=== PATIENT | female | born 1990 | race Caucasian/White ===

== ENCOUNTER 2016-05-02 11:11 | Observation (INO) | payer BC, MEDICAID ==
[~2016-05-02 11:11] MED LIST: ABILIFY10 M1 PO; ADVAIR 2501 DISK W/D IH; ALBUTEROL NEBULIZER INH; ALBUTEROL SULF8.5 G2 INH; ALBUTEROL17 GM INH; ALBUTEROL2.5 MG/0.1 IH; AMBIEN5 M1 PO; AMOXICILLIN875 M1 PO; ATIVAN1 M2 PO; DICLOFENAC POTA50 M1 PO; LAMICTAL PO; LAMICTAL150 M1 PO; LAMICTAL200 M2 PO; MACROBID 100 M100 M1 PO; METFORMIN; METFORMIN HCL500 M2 PO; PREDNISONE20 M1 PO; PROMETHAZINE-C118 ML PO; PROMETRIUM100 MG/CAP PO; PROVENTIL HFA6.7 G1 IH; ZITHROMAX250 M1 PO; ZITHROMAX250MG Z-PAK PO; ZOFRAN4 M2 PO
[2016-05-02] MEDS ORDERED: FLONASE ALLERG9.9 ML (14:31)
[2016-11-26] MEDS ORDERED: ZOFRAN ODT4 MG PO (21:24)
== END 2016-05-02 13:40 ==
LOC: LDR 11:11
PROVIDERS: ADMIT Obstetrics & Gynecology
DX: O99.89 Other specified diseases and conditions complicating pregnancy, childbirth and the puerperium (principal); R42 Dizziness and giddiness; Z3A.33 33 weeks gestation of pregnancy; Z79.899 Other long term (current) drug therapy; Z98.890 Other specified postprocedural states

== ENCOUNTER 2016-05-26 11:12 | Observation (INO) | payer BC, MEDICAID ==
[~2016-05-26 11:12] MED LIST changes: +FLONASE ALLERG9.9 ML
[2016-11-26] MEDS ORDERED: ZOFRAN ODT4 MG PO (21:24)
== END 2016-05-26 13:05 ==
LOC: LDR 11:12
PROVIDERS: ADMIT Obstetrics & Gynecology
DX: O36.8130 Decreased fetal movements, third trimester, not applicable or unspecified (principal); Z3A.37 37 weeks gestation of pregnancy; Z90.49 Acquired absence of other specified parts of digestive tract; Z90.89 Acquired absence of other organs; Z98.890 Other specified postprocedural states